=== PATIENT | male | born 1965 | race Caucasian/White ===

== ENCOUNTER 2017-09-23 01:45 | Observation (INO) | payer MEDICAID, OTHER ==
--- NOTE | 2017-09-23 02:45 | ED PDOC ---
Arrival/HPI - General Chief Complaint: Dizziness/Lightheaded Time Seen by Provider: 09/23/17 02:09 Historian: Patient - History of Present Illness Narrative History of Present Illness (Text): 09/23/17 02:37 Dede Garcia is a 51 year old male, whose past medical history includes hyperlipidemia, hypertension, diabetes, and Hepatitis C, who presents to the Emergency department complaining of chest pain. Patient states he has been experiencing chest/epigastric pain with associated dyspnea on exertion, dizziness, and nausea. Patient also notes he feels "very tired." Patient denies any fever, chills, nausea, vomiting, diarrhea, urinary symptoms, back pain, neck pain, headache, or any other complaints. Symptom Onset: Gradual Symptom Course: Unchanged Activities at Onset: Light Context: Home Past Medical History - Provider Review Nursing Documentation Reviewed: Yes - Infectious Disease Hx of Infectious Diseases: None - Psychiatric Hx Depression: No Hx Emotional Abuse: No Hx Physical Abuse: No Hx Substance Use: No - Suicidal Assessment Feels Threatened In Home Enviroment: No Family/Social History - Physician Review Nursing Documentation Reviewed: Yes Family/Social History: Unknown Family HX Hx Alcohol Use: No Hx Substance Use: No Hx Substance Use Treatment: No Allergies/Home Meds Allergies/Adverse Reactions: Allergies No Known Allergies Allergy (Verified 02/23/12 11:20) Home Medications: Home Meds Medication Instructions Recorded Confirmed Alogliptin Benzoate [Alogliptin] 25 mg PO DAILY 09/23/17 09/23/17 Aspirin [Aspirin Chewable] 81 mg PO DAILY 09/23/17 09/23/17 Cetirizine HCl [24Hour Allergy] 10 mg PO DAILY 09/23/17 09/23/17 Ergocalciferol [Drisdol 50,000 1 cap PO DAILY 09/23/17 09/23/17 Intl Units Cap] Fluticasone Nasal [Flonase] 50 mcg NORTH DAILY 09/23/17 09/23/17 Gemfibrozil [Lopid] 600 mg PO DAILY 09/23/17 09/23/17 Niacin [Plain Niacin] 500 mg PO DAILY 09/23/17 09/23/17 Omega3,5,6,7,9 No.1/Aldie Oil 1 cap PO DAILY 09/23/17 09/23/17 [Complete [place] Softgel] PrednisoLONE 1% [Pred Forte 1% 1 drop BOTHEYES DAILY 09/23/17 09/23/17 Opht Susp] metFORMIN [glucOPHAGE] 750 mg PO DAILY 09/23/17 09/23/17 Review of Systems - Physician Review All systems were reviewed & negative as marked: Yes - Review of Systems Constitutional: absent: Fevers Eyes: Normal ENT: Normal Respiratory: Normal. absent: SOB Cardiovascular: Chest Pain, JENKINS Gastrointestinal: Nausea Genitourinary Male: Normal. absent: Dysuria, Frequency, Hematuria, Urinary Output Changes Musculoskeletal: Normal. absent: Back Pain, Neck Pain Skin: Normal. absent: Rash Neurological: Dizziness. absent: Headache Endocrine: Normal Hemo/Lymphatic: Normal Psychiatric: Normal Physical Exam Vital Signs Reviewed: Yes Vital Signs Temp Pulse Resp BP Pulse Ox 09/23/17 01:56 97.6 F 68 15 134/86 97 Temperature: Afebrile Blood Pressure: Normal Pulse: Regular Respiratory Rate: Normal Appearance: Positive for: Well-Appearing, Non-Toxic, Comfortable Pain Distress: None Mental Status: Positive for: Alert and Oriented X 3 - Systems Exam Head: Present: Atraumatic, Normocephalic Pupils: Present: PERRL Extroacular Muscles: Present: EOMI Conjunctiva: Present: Normal Mouth: Present: Moist Mucous Membranes Neck: Present: Normal Range of Motion Respiratory/Chest: Present: Clear to Auscultation, Good Air Exchange. No: Respiratory Distress, Accessory Muscle Use Cardiovascular: Present: Regular Rate and Rhythm, Normal S1, S2. No: Murmurs Abdomen: No: Tenderness, Distention, Peritoneal Signs Back: Present: Normal Inspection Upper Extremity: Present: Normal Inspection. No: Cyanosis, Edema Lower Extremity: Present: Normal Inspection. No: Edema Neurological: Present: GCS=15, CN II-XII Intact, Speech Normal Skin: Present: Warm, Dry, Normal Color. No: Rashes Psychiatric: Present: Alert, Oriented x 3, Normal Insight, Normal Concentration Medical Decision Making ED Course and Treatment: 09/23/17 02:37 Impression: 51 year old male complaining of chest/epigastric pain, dyspnea on exertion, dizziness, and nausea. Plan: -- CT Head w/o contrast -- EKG -- Chest X-ray -- Labs, BNP, cardiac enzymes -- Reassess and disposition Progress Notes: Reviewed EKG, NSR at [address]-segment elevations or depressions, no T-wave inversions, normal intervals. 09/23/17 03:35 Chest X-ray reviewed, shows no acute processes. 09/23/17 04:26 CT Head shows: Ventricles: Unremarkable. No ventriculomegaly. Bones/joints: Unremarkable. No acute fracture. Soft tissues: Unremarkable. Sinuses: Mild inferior frontal, ethmoid and sphenoid sinus mucosal thickening. Mastoid air cells: Unremarkable as visualized. No mastoid effusion. IMPRESSION: 1. Mild inferior frontal, ethmoid and sphenoid sinus disease. 2. Otherwise negative noncontrast head CT. 09/23/17 04:38 Case discussed with medical collections dental front office assistant, who is aware and agrees with plan. Case discussed with Dr. Duong, who is aware and agrees with plan. Accepts pt in to hospitalist service. Pt will go to Telemetry observation for chest pain. - Lab Interpretations Lab Results: 09/23/17 02:40 09/23/17 02:40 Lab Results 09/23/17 02:40: WBC 3.9 L, RBC 4.93, Hgb 13.7 L, Hct 39.6 L, MCV 80.3, MCH 27.8 , MCHC 34.6, RDW 13.6, Plt Count 229, MPV 9.8 09/23/17 02:40: Sodium 140, Potassium 3.9, Chloride 102, Carbon Dioxide 24, Anion Gap 19, BUN 20, Creatinine 0.6 L, Est GFR ( Amer) > 60, Est GFR ( Non-Af Amer) > 60, Random Glucose 127 H, Calcium 10.0, Total Bilirubin 0.7, AST 39, ALT 43, Alkaline Phosphatase 41, Lactate Dehydrogenase 341, Total Creatine Kinase 82, Troponin I < 0.01, NT-Pro-B Natriuret Pep < 11.1, Total Protein 8.2, Albumin 4.9 H, Globulin 3.3, Albumin/Globulin Ratio 1.5 09/23/17 02:40: PT 12.4, INR 1.09 H, APTT 30.2 I have reviewed the lab results: Yes - RAD Interpretation Radiology Orders: 09/23/17 02:38 CHEST PORTABLE [RAD] Stat 09/23/17 02:40 HEAD W/O CONTRAST [CT] Stat Mangle Operator Garments: ED Physician - EKG Interpretation Interpreted by ED Physician: Yes Type: 12 lead EKG - Medication Orders Current Medication Orders: Aspirin (Aspirin Chewable) 81 mg PO DAILY ANGELICA Enoxaparin Sodium (Lovenox) 40 mg SC DAILY ANGELICA PRN Reason: Protocol Ergocalciferol (Drisdol 50,000 Intl Units Cap) 1 cap PO DAILY ANGELICA Fluticasone Propionate (Flonase) actuation NORTH DAILY ANGELICA Gemfibrozil (Lopid) 600 mg PO DAILY ANGELICA Loratadine (Claritin) 10 mg PO DAILY ANGELICA Niacin (Niacin) 500 mg PO DAILY ANGELICA Omega3,5,6,7,9 No.1/Aldie Oil [Complete [place] Softgel] ( Home Med) 1 cap PO DAILY ANGELICA Pantoprazole Sodium (Protonix Ec Tab) 40 mg PO 0600 ANGELICA Prednisolone Acetate (Pred Forte 1% Opht Susp) ml OU DAILY ANGELICA Discontinued Medications Aspirin (Aspirin) 325 mg PO ONCE STA Stop: 09/23/17 04:42 Last Admin: 09/23/17 05:15 Dose: 325 mg - Scribe Statement The provider has reviewed the documentation as recorded by the Melisa Romero Provider Scribe Attestation: All medical record entries made by the Melisa were at my direction and personally dictated by me. I have reviewed the chart and agree that the record accurately reflects my personal performance of the history, physical exam, medical decision making, and the department course for this patient. I have also personally directed, reviewed, and agree with the discharge instructions and disposition. Disposition/Present on Arrival - Present on Arrival Any Indicators Present on Arrival: No History of DVT/PE: No History of Uncontrolled Diabetes: No Urinary Catheter: No History of Decub. Ulcer: No History Surgical Site Infection Following: None - Disposition Have Diagnosis and Disposition been Completed?: Yes Diagnosis: Chest pain Disposition: HOSPITALIZED Disposition Time: 04:41 Patient Problems: Current Active Problems Problem Status Onset Chest pain Acute Condition: STABLE
[2017-09-23 03:06] LABS: HEMOGLOBIN 13.7 g/dL (14.0-18.0); MEAN CELL VOLUME 80.3 fl (80.0-105.0); MEAN CORPUSCULAR HEMOGLOBIN 27.8 pg (25.0-35.0); MEAN CORPUSCULAR HGB CONC 34.6 g/dl (31.0-37.0); MEAN PLATELET VOLUME 9.8 fl (7.0-11.0); RBC 4.93 10^6/uL (3.5-6.1); RED CELL DISTRIBUTION WIDTH 13.6 % (11.5-14.5); WHITE BLOOD COUNT 3.9 10^3/ul (4.5-11.0)
[2017-09-23 03:11] LABS: ALB/GLOB RATIO 1.5 (1.1-1.8); ALBUMIN 4.9 g/dL (3.0-4.8); ALT/SGPT 43 U/L (7-56); AST/SGOT 39 U/L (17-59); BLOOD UREA NITROGEN 20 mg/dL (7-21); GFR AFRICAN-AMERICAN > 60; GFR NON-AFRICAN AMERICAN > 60
[2017-09-23 03:14] LABS: INR 1.09 (0.93-1.08); PARTIAL THROMBOPLASTIN TIME 30.2 Seconds (25.1-36.5); PROTHROMBIN TIME 12.4 SECONDS (9.4-12.5)
[2017-09-23 03:23] LABS: TROPONIN I < 0.01 ng/mL
[2017-09-23 03:24] LABS: B-TYPE NATRIURETIC PEPTIDE < 11.1 pg/mL (0-450)
--- NOTE | 2017-09-23 04:51 | CP.PCM.HP ---
<Nikolas Soto - Last Filed: 09/23/17 05:17> History of Present Illness - History of Present Illness History of Present Illness: Medicine H&P: Dr. Duong Chief Complaint: Dizziness and Chest Pain HPI: 51 year old male with past medical history significant for hyperlipidemia, hypertension, diabetes, and Hepatitis C (known, treated) who presents with dizziness and chest pain for the past 5 hours. Patient states that he has been home from work for the past few days now and he was sitting at home at rest when he had 5/10, substernal, non-radiating, left sided chest pain with associated symptoms of dizziness and general fatigue. Patient denies palliative or provocating symptoms. Patient states that his PMD has prescribed allergy medications for him but he has not been taking them. He denies fevers and chills at home and denies any sick contacts. Patient has never had an ECHO, a cath, and does not follow with a digital production operator outpatient. He had a stress test at [facility] which he conveyed and was found per chart review to be a normal test. Patient has no history of AMI Review of Systems: 12 point ROS obtained and negative except as per HPI Surgical History: Patient denies Medical History: Hyperlipidemia, hypertension, diabetes, and Hepatitis C ( known, treated) Allergies: NKDA Social History: Denies alcohol, tobacco, illicits (Hep C was contracted by dirty needles [place] country) Home Meds: Reviewed, as per MAR Family History: Hypertension PMD: Dr. Johnson Present on Admission - Present on Admission Any Indicators Present on Admission: No Past Patient History - Infectious Disease Hx of Infectious Diseases: None - Past Social History Smoking Status: Never Smoked - CARDIAC Hx Hypertension: Yes - HEMATOLOGICAL/ONCOLOGICAL Hx Hepatitis C: Yes - PSYCHIATRIC Hx Depression: No Hx Emotional Abuse: No Hx Physical Abuse: No Hx Substance Use: No - SURGICAL HISTORY Hx Cholecystectomy: Yes - ANESTHESIA Hx Anesthesia: No Hx Anesthesia Reactions: No Hx Malignant Hyperthermia: No Meds Allergies/Adverse Reactions: Allergies Allergy/AdvReac Type Severity Reaction Status Date / Time No Known Allergies Allergy Verified 02/23/12 11:20 Physical Exam - Constitutional Appears: Well - Head Exam Head Exam: ATRAUMATIC, NORMAL INSPECTION, NORMOCEPHALIC - Eye Exam Eye Exam: EOMI, Normal appearance, PERRL Pupil Exam: NORMAL ACCOMODATION, PERRL - ENT Exam ENT Exam: Mucous Membranes Moist, Normal Exam Additional comments: No sinus tenderness; nares are clear and without congestion - Neck Exam Neck exam: Positive for: Normal Inspection - Respiratory Exam Respiratory Exam: Clear to Auscultation Bilateral, NORMAL BREATHING PATTERN - Cardiovascular Exam Cardiovascular Exam: REGULAR RHYTHM - GI/Abdominal Exam GI & Abdominal Exam: Normal Bowel Sounds, Soft, Tenderness (Mild epigastric tenderness to palpation) - Extremities Exam Extremities exam: Positive for: normal inspection - Back Exam Back exam: NORMAL INSPECTION - Neurological Exam Neurological exam: Alert, CN II-XII Intact, Normal Gait, Oriented x3, Reflexes Normal - Psychiatric Exam Psychiatric exam: Normal Affect, Normal Mood - Skin Skin Exam: Dry, Intact, Normal Color, Warm Results - Vital Signs Recent Vital Signs: Last Vital Signs Temp 97.6 F 09/23/17 01:56 Pulse 68 09/23/17 01:56 Resp 15 09/23/17 01:56 BP 134/86 09/23/17 01:56 Pulse Ox 97 09/23/17 01:56 - Labs Result Diagrams: 09/23/17 02:40 09/23/17 02:40 Labs: Laboratory Results - last 24 hr 09/23/17 09/23/17 09/23/17 02:40 02:40 02:40 WBC 3.9 L RBC 4.93 Hgb 13.7 L Hct 39.6 L MCV 80.3 MCH 27.8 MCHC 34.6 RDW 13.6 Plt Count 229 MPV 9.8 PT 12.4 INR 1.09 H APTT 30.2 Sodium 140 Potassium 3.9 Chloride 102 Carbon Dioxide 24 Anion Gap 19 BUN 20 Creatinine 0.6 L Est GFR ( Amer) > 60 Est GFR (Non-Af Amer) > 60 Random Glucose 127 H Calcium 10.0 Total Bilirubin 0.7 AST 39 ALT 43 Alkaline Phosphatase 41 Lactate Dehydrogenase 341 Total Creatine Kinase 82 Troponin I < 0.01 NT-Pro-B Natriuret Pep < 11.1 Total Protein 8.2 Albumin 4.9 H Globulin 3.3 Albumin/Globulin Ratio 1.5 Assessment & Plan - Assessment and Plan (Free Text) Assessment: 51 year old male with pertinent medical history of hyperlipidemia, hypertension , and diabetes presents with 5 hour duration of chest pain. Patient's initial trope/EKG were negative for STEMI/NSTEMI/ACS. Patient has several risk factors , but ASCVD cannot be calculated without up to date lipid profile - likely high given risk factors. Patient also complains of dizziness but states that he has been drinking plenty of water and head CT negative in the ED for any acute process besides sinus disease. BUN does not indicate dehydration, H/H stable, blood glucose is stable and no electrolyte abnormalities. Patient is afebrile and is satting well on room air. Patient has a history of hepatitis but LFT's and Liver enzymes are wnl. Patient has history of hypertension but is not on home medications and is normotensive here. Plan: Dizziness - Rapid flu - ECHO - Day team can consider Neurology consult, unnecessary for now Chest pain rule out ACS - Admit to telemetry - EKG and Tropes series, Lipid panel, A1C, TSH - ECHO - Cardiology Consult: Dr. Cruz Hx of Hyperlipidemia - Lipid panel - Continue ASA, Gemfibrozil, Niacin, [place] fatty acids Hx of Hypertension - No home medications, monitor for now Hx of Diabetes - Hold home oral medications - A1C - RISS Medium Hx Hepatitis C (known, treated) - Monitor LFT's GI/DVT Prophylaxis - Protonix/Lovenox <Lashonda Duong - Last Filed: 09/23/17 07:50> Results - Vital Signs Recent Vital Signs: Last Vital Signs Temp 97.8 F 09/23/17 07:00 Pulse 71 09/23/17 07:00 Resp 18 09/23/17 07:00 BP 116/84 09/23/17 07:00 Pulse Ox 98 09/23/17 07:00 - Labs Result Diagrams: 09/23/17 07:20 09/23/17 07:20 Labs: Laboratory Results - last 24 hr 09/23/17 09/23/17 09/23/17 07:13 07:20 07:20 WBC 4.2 L RBC 5.08 Hgb 13.9 L Hct 40.7 L MCV 80.1 MCH 27.4 MCHC 34.2 RDW 13.6 Plt Count 241 MPV 9.4 Gran % 44.7 L Lymph % (Auto) 44.5 H [place] % (Auto) 6.7 H Eos % (Auto) 3.4 Baso % (Auto) 0.7 Gran # 1.86 Lymph # (Auto) 1.9 [place] # (Auto) 0.3 Eos # (Auto) 0.1 Baso # (Auto) 0.03 Sodium 141 Potassium 4.3 Chloride 103 Carbon Dioxide 22 Anion Gap 20 BUN 15 Creatinine 0.6 L Est GFR ( Amer) > 60 Est GFR (Non-Af Amer) > 60 POC Glucose (mg/dL) 97 Random Glucose 119 H Calcium 10.2 Phosphorus 3.7 Magnesium 2.2 Total Bilirubin 0.8 AST 33 ALT 47 Alkaline Phosphatase 44 Lactate Dehydrogenase 307 L Total Creatine Kinase 79 Total Protein 8.4 H Albumin 5.1 H Globulin 3.3 Albumin/Globulin Ratio 1.5 Triglycerides 224 H Cholesterol 204 H HDL Cholesterol 34 Attending/Attestation - Attestation I have personally seen and examined this patient.: Yes I have fully participated in the care of the patient.: Yes I have reviewed all pertinent clinical information: Yes Notes (Text): 09/23/17 07:50 Agree with documentation and orders placed.
[2017-09-23] MEDS: Pantoprazole 40 mg EC Tab PO SCH (07:12)
[2017-09-23 07:33] LABS: BASO # 0.03 K/mm3 (0.0-2.0); BASO % 0.7 % (0.0-3.0); EOS # 0.1 (0.0-0.7); EOS % 3.4 % (1.5-5.0); GRAN # 1.86 (1.4-6.5); GRAN % 44.7 % (50.0-68.0); HEMOGLOBIN 13.9 g/dL (14.0-18.0); LYMPH # 1.9 (1.2-3.4); LYMPH % 44.5 % (22.0-35.0); MEAN CELL VOLUME 80.1 fl (80.0-105.0); MEAN CORPUSCULAR HEMOGLOBIN 27.4 pg (25.0-35.0); MEAN CORPUSCULAR HGB CONC 34.2 g/dl (31.0-37.0); MEAN PLATELET VOLUME 9.4 fl (7.0-11.0); MONO # 0.3 (0.1-0.6); MONO % 6.7 % (1.0-6.0); RBC 5.08 10^6/uL (3.5-6.1); RED CELL DISTRIBUTION WIDTH 13.6 % (11.5-14.5); WHITE BLOOD COUNT 4.2 10^3/ul (4.5-11.0)
[2017-09-23 07:49] LABS: ALB/GLOB RATIO 1.5 (1.1-1.8); ALBUMIN 5.1 g/dL (3.0-4.8); ALT/SGPT 47 U/L (7-56); AST/SGOT 33 U/L (17-59); BLOOD UREA NITROGEN 15 mg/dL (7-21); CALCIUM 10.2 mg/dL (8.4-10.5); GFR AFRICAN-AMERICAN > 60; GFR NON-AFRICAN AMERICAN > 60; HDL CHOLESTEROL 34 mg/dL (29-60)
[2017-09-23 07:53] LABS: TROPONIN I < 0.01 ng/mL
[2017-09-23 07:56] LABS: LDL CHOLESTEROL 132 mg/dL (0-129)
--- NOTE | 2017-09-23 08:20 | CT ---
PROCEDURE: CT HEAD WITHOUT CONTRAST. HISTORY: Dizziness, shortness of breath. COMPARISON: None available. TECHNIQUE: Axial computed tomography images were obtained through the head/brain without intravenous contrast. Radiation dose: Total exam DLP = 828.50 mGy-cm. This CT exam was performed using one or more of the following dose reduction techniques: Automated exposure control, adjustment of the mA and/or kV according to patient size, and/or use of iterative reconstruction technique. FINDINGS: HEMORRHAGE: No intracranial hemorrhage. BRAIN: No mass effect or edema. No atrophy or chronic microvascular ischemic changes. VENTRICLES: Unremarkable. No hydrocephalus. CALVARIUM: Unremarkable. PARANASAL SINUSES: Chronic ethmoid air cell disease MASTOID AIR CELLS: Unremarkable as visualized. No inflammatory changes. OTHER FINDINGS: None. IMPRESSION: No acute intracranial abnormalities. No significant findings to account for the clinical presentation. Concordant results (preliminary interpretation) provided by [facility]. Procedure Completed: 03:00 Preliminary (vRad) Report: Dictated and Authenticated: 03:48 Final Interpretation: 08:15 September 23, 2017.
[2017-09-23] MEDS: Insulin Reg-MEDIUM-Coverage SC SCH ×4 (08:28→21:34)
--- NOTE | 2017-09-23 09:18 | RAD ---
HISTORY: chest pain COMPARISON: 02/23/2012. FINDINGS: LUNGS: No active pulmonary disease. PLEURA: No significant pleural effusion identified, no pneumothorax apparent. CARDIOVASCULAR: No radiographic findings to suggest acute or significant cardiovascular disease. OSSEOUS STRUCTURES: No significant abnormalities. VISUALIZED UPPER ABDOMEN: Normal. OTHER FINDINGS: None. IMPRESSION: No active disease. No significant interval change compared to the prior examination(s).
[2017-09-23] MEDS: PrednisoLONE 1% Opht Susp(5 ml) OU SCH (10:09)
[2017-09-23] MEDS: Ergocalciferol 50,000 Intl Units Cap PO SCH (10:12)
[2017-09-23] MEDS: Enoxaparin 40 mg Syringe SC SCH (10:12)
[2017-09-23] MEDS: [UNRECOGNIZED DRUG - REMARK] PO SCH (10:12)
[2017-09-23] MEDS: Fluticasone Nasal 50 mcg/Spray NAS SCH (10:13)
[2017-09-23] MEDS: Sodium Chloride 0.9% 1,000 ML IV SCH ×2 (14:02→23:16)
--- NOTE | 2017-09-23 14:42 | CP.PCM.CON ---
History of Present Illness - History of Present Illness History of Present Illness: is a 51 year old male, pmh of hyperlipidemia, HTN, DM, HepC, who presents with dizziness and chest pain for 5 hours before admission. He had been home from work for a month and was at rest when he developed chest pain, and then had profound dizziness. He denies fevers and chills at home and denies any sick contacts. He got up and then became quite dizzy with diapohoresis and then came to the hospital. In house, he has had a CT head which was normal, and is now getting carotid. He has never had an ECHO, cath, with stress test at [facility]. Surgical History: Patient denies Medical History: Hyperlipidemia, hypertension, diabetes, and Hepatitis C ( known, treated) Allergies: NKDA Social History: Denies alcohol, tobacco, illicits (Hep C was contracted by dirty needles [place] his [place]) Home Meds: Reviewed, as per [facility] Family History: Hypertension On exam: AAOX3. Pupils 3mm-2mm with light. EOMI. No ptosis. Motor: tone normal, sensory: intact ft, pin pos sense. Cerebellar: f/n no dysmetria, +rhombergs to the right. +2 dtr ul and ll bl. Toes downgoing, no clonus. gait normal. Past Patient History - Infectious Disease Hx of Infectious Diseases: None - Past Social History Smoking Status: Never Smoked - CARDIAC Hx Hypercholesterolemia: Yes Hx Hypertension: Yes - HEMATOLOGICAL/ONCOLOGICAL Hx Hepatitis C: Yes - MUSCULOSKELETAL/RHEUMATOLOGICAL Hx Falls: No - PSYCHIATRIC Hx Depression: No Hx Emotional Abuse: No Hx Physical Abuse: No Hx Substance Use: No - SURGICAL HISTORY Hx Cholecystectomy: Yes - ANESTHESIA Hx Anesthesia: No Hx Anesthesia Reactions: No Hx Malignant Hyperthermia: No Meds Allergies/Adverse Reactions: Allergies Allergy/AdvReac Type Severity Reaction Status Date / Time No Known Allergies Allergy Verified 02/23/12 11:20 - Medications Medications: Current Medications Aspirin (Aspirin Chewable) 81 mg PO DAILY [facility] Last Admin: 09/23/17 10:12 Dose: 81 mg Enoxaparin Sodium (Lovenox) 40 mg SC DAILY ANGELICA PRN Reason: Protocol Last Admin: 09/23/17 10:12 Dose: 40 mg Ergocalciferol (Drisdol 50,000 Intl Units Cap) 1 cap PO DAILY [facility] Last Admin: 09/23/17 10:12 Dose: 1 cap Fluticasone Propionate (Flonase) 2 actuation NORTH DAILY [facility] Last Admin: 09/23/17 10:13 Dose: Not Given Gemfibrozil (Lopid) 600 mg PO DAILY [facility] Last Admin: 09/23/17 10:12 Dose: 600 mg Sodium Chloride (Sodium Chloride 0.9%) 1,000 mls @ 100 mls/hr IV .Q10H [facility] Last Admin: 09/23/17 14:02 Dose: 100 mls/hr Ibuprofen (Motrin Tab) 400 mg PO Q6H PRN PRN Reason: Headache Last Admin: 09/23/17 14:01 Dose: 400 mg Insulin Human Regular (Humulin R Med) 0 units SC ACHS [facility] PRN Reason: Protocol Last Admin: 09/23/17 12:52 Dose: Not Given Loratadine (Claritin) 10 mg PO DAILY [facility] Last Admin: 09/23/17 10:12 Dose: 10 mg Meclizine HCl (Antivert) 12.5 mg PO BID [facility] Niacin (Niacin) 500 mg PO DAILY [facility] Last Admin: 09/23/17 10:12 Dose: 500 mg Omega3,5,6,7,9 No.1/[place] Oil [Complete [place] Softgel] ( Home Med) 1 cap PO DAILY [facility] Last Admin: 09/23/17 10:12 Dose: Not Given Pantoprazole Sodium (Protonix Ec Tab) 40 mg PO 0600 [facility] Last Admin: 09/23/17 07:12 Dose: 40 mg Prednisolone Acetate (Pred Forte 1% Opht Susp) 0 ml OU DAILY [facility] Last Admin: 09/23/17 10:09 Dose: 1 drop Results - Vital Signs Recent Vital Signs: Last Vital Signs Temp 98.6 F 09/23/17 11:57 Pulse 74 09/23/17 11:57 Resp 16 09/23/17 11:57 BP 108/67 09/23/17 11:57 Pulse Ox 98 09/23/17 07:00 - Labs Result Diagrams: 09/23/17 07:20 09/23/17 07:20 Labs: Laboratory Results - last 24 hr 09/23/17 09/23/17 09/23/17 07:13 07:20 07:20 WBC 4.2 L RBC 5.08 Hgb 13.9 L Hct 40.7 L MCV 80.1 MCH 27.4 MCHC 34.2 RDW 13.6 Plt Count 241 MPV 9.4 Gran % 44.7 L Lymph % (Auto) 44.5 H [place] % (Auto) 6.7 H Eos % (Auto) 3.4 Baso % (Auto) 0.7 Gran # 1.86 Lymph # (Auto) 1.9 [place] # (Auto) 0.3 Eos # (Auto) 0.1 Baso # (Auto) 0.03 Sodium 141 Potassium 4.3 Chloride 103 Carbon Dioxide 22 Anion Gap 20 BUN 15 Creatinine 0.6 L Est GFR ( Amer) > 60 Est GFR (Non-Af Amer) > 60 POC Glucose (mg/dL) 97 Random Glucose 119 H Hemoglobin A1c Calcium 10.2 Phosphorus 3.7 Magnesium 2.2 Total Bilirubin 0.8 AST 33 ALT 47 Alkaline Phosphatase 44 Lactate Dehydrogenase 307 L Total Creatine Kinase 79 Troponin I < 0.01 Total Protein 8.4 H Albumin 5.1 H Globulin 3.3 Albumin/Globulin Ratio 1.5 Triglycerides 224 H Cholesterol 204 H LDL Cholesterol Direct 132 H HDL Cholesterol 34 TSH 3rd Generation 09/23/17 09/23/17 09/23/17 07:20 07:20 11:38 WBC RBC Hgb Hct MCV MCH MCHC RDW Plt Count MPV Gran % Lymph % (Auto) [place] % (Auto) Eos % (Auto) Baso % (Auto) Gran # Lymph # (Auto) [place] # (Auto) Eos # (Auto) Baso # (Auto) Sodium Potassium Chloride Carbon Dioxide Anion Gap BUN Creatinine Est GFR ( Amer) Est GFR (Non-Af Amer) POC Glucose (mg/dL) 77 Random Glucose Hemoglobin A1c 6.1 Calcium Phosphorus Magnesium Total Bilirubin AST ALT Alkaline Phosphatase Lactate Dehydrogenase Total Creatine Kinase Troponin I Total Protein Albumin Globulin Albumin/Globulin Ratio Triglycerides Cholesterol LDL Cholesterol Direct HDL Cholesterol TSH 3rd Generation 0.59 - Imaging and Cardiology CT scan - head Status: Image reviewed by me, Report reviewed by me (Normal ct head ) Assessment & Plan - Assessment and Plan (Free Text) Assessment: 51 yr old male who has some soft cerebellar signs and 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 We will order CTA Brain and look for posterior circulation atherosclerosis, and MRI Brain without contrast. PLan: 1. CTA Brain 2. MRI Brain 3. Cardiology consult. Thank you Dr. Levin
[2017-09-23 14:49] LABS: TROPONIN I < 0.01 ng/mL
--- NOTE | 2017-09-23 16:10 | CT ---
PROCEDURE: CTA of the neck and brain dated 09/23/2017 HISTORY: Rule out occlusion. COMPARISON: Comparison made with concurrent MRI of the brain as well as prior CT scan brain earlier same day. TECHNIQUE: Contiguous helical/transaxial images of the neck were obtained from the level of the skull-base to the superior mediastinum in the arteriographic phase of enhancement. Coronal and sagittal reformats or also generated. IV contrast dose: 150 cc Omnipaque 350 Radiation Dose - DLP: 523.37 mGy-cm This CT exam was performed using one or more of the following dose reduction techniques: Automated exposure control, adjustment of the mA and/or kV according to patient size, and/or use of iterative reconstruction technique. FINDINGS: RIGHT CAROTID ARTERIES: The aortic arch is widely patent without significant atherosclerotic plaque. . Three-vessel arch. Origins of the great vessels are also widely patent without significant atherosclerotic plaque changes. The right and left common carotid arteries including the carotid bifurcations widely patent without evidence of occlusion significant stenosis or dissection. The distal internal carotid arteries including the petrous cavernous and supraclinoid segments also widely patent. Note made of slight asymmetry of the internal carotid arteries most notably affecting the and petrous and cavernous segments felt to represent an anatomic variation. The vertebral arteries are patent throughout left-sided which is slightly larger in caliber/more dominant than the right side. . Minor asymmetry of the A1 segments right-sided which is slightly larger in caliber/more dominant than the left side. . The remaining visualized distal branches of the anterior middle and posterior cerebral arteries are relatively symmetric. No evidence of large aneurysm nor vascular malformation. Note again made of mild mucoperiosteal inflammatory changes within all the paranasal sinuses. No fluid levels seen to suggest acute sinusitis. IMPRESSION: Unremarkable CT Angiography of the neck and brain. . . No evidence of occlusion significant stenosis or dissection. No evidence of large intra cerebral aneurysm nor vascular malformation.
--- NOTE | 2017-09-23 16:19 | MRI ---
PROCEDURE: MRI BRAIN WITHOUT CONTRAST HISTORY: Follow-up COMPARISON: Comparison made with concurrent CT scan and CTA of the neck and brain. TECHNIQUE: Multiplanar, multisequence MR images of the brain were obtained without intravenous contrast enhancement. FINDINGS: HEMORRHAGE: No acute parenchymal, subarachnoid or extra-axial hemorrhage. No evidence of hemosiderin deposition is identified on gradient echo weighted sequence. . DWI: No evidence of an acute or early subacute infarction seen on diffusion imaging. . BRAIN PARENCHYMA: Minimal slightly coalescent prolonged T2 signal changes in the periventricular white matter may represent some combination of minimal chronic sequela of small vessel disease and some FLAIR related CSF interface artifact. There are also a few chronic appearing lacunar type infarcts seen scattered about the deep and subcortical white matter both cerebral hemispheres. None of these changes exhibit restricted diffusion. No obvious parenchymal nor extra-axial mass or collection identified on this noncontrast exam Ventricular and sulcal size are within range of normal for this patient's stated age. . VENTRICLES: No obstructive hydrocephalus. CRANIUM: No acute calvarial abnormalities are identified. ORBITS: Orbits and contents grossly unremarkable. PARANASAL SINUSES/MASTOIDS: There is mild mucoperiosteal inflammatory changes within all the paranasal sinuses. No fluid levels seen to suggest acute sinusitis. VASCULAR SYSTEM: Visualized major vascular flow voids at skull base patent. OTHER FINDINGS: None. IMPRESSION: No evidence of acute intracranial hemorrhage. Minor chronic periventricular white matter ischemic changes
--- NOTE | 2017-09-23 16:27 | US ---
PROCEDURE: Bilateral carotid artery duplex ultrasound HISTORY: Carotid stenosis dizziness PHYSICIAN(S): Ariel Garnett MD. TECHNIQUE: Duplex sonography and color-flow Doppler were used to evaluate the carotid bifurcations and limited segments of the vertebral arteries bilaterally. FINDINGS: There is mild smooth hypoechoic plaque noted at the carotid bifurcations bilaterally. The peak systolic velocity in the proximal right internal carotid artery is 67 cm/sec. This corresponds to a 20 to 39% proximal right ICA stenosis. Normal systolic velocities are noted in the proximal right external carotid artery. There is blunted antegrade flow in the atretic right vertebral artery. The peak systolic velocity in the proximal left internal carotid artery is 71 cm/sec. This corresponds to a 20 to 39% proximal left ICA stenosis. Normal systolic velocities are noted in the proximal left external carotid artery. There is antegrade flow in the dominant left vertebral artery. IMPRESSION: 1. Bilateral 20-39% proximal ICA stenoses. 2. Antegrade flow in both vertebral arteries.
--- NOTE | 2017-09-23 18:27 | CARD ---
APPROVED REPORT EXAM: Two-dimensional and M-mode echocardiogram with Doppler and color Doppler. INDICATION Chest Pain 2D DIMENSIONS Left Atrium (2D)3.3 (1.6-4.0cm)IVSd1.1 (0.7-1.1cm) LVDd4.0 (3.9-5.9cm)PWd1.2 (0.7-1.1cm) LVDs2.6 (2.5-4.0cm)FS (%) 33.2 % LVEF (%)62.3 (>50%) M-Mode DIMENSIONS Aortic Root3.40 (2.2-3.7cm)Aortic Cusp Exc.2.00 (1.5-2.0cm) Aortic Valve AoV Peak Eeyocodv73.6cm/Carolyne Peak GR.3mmHg Mitral Valve MV E Ijuavrai25.1cm/sMV A Qozukakb34.1cm/sE/A ratio0.8 TDI E/Lateral E'0.0E/Medial E'0.0 Tricuspid Valve TR Peak [id number]/sRAP [id number] Peak Gr.18mmHg [id number] LEFT VENTRICLE The left ventricle is normal size. There is normal left ventricular wall thickness. The left ventricular function is normal. The left ventricular ejection fraction is within the normal range. There is normal LV segmental wall motion. Transmitral Doppler flow pattern is Grade I-abnormal relaxation pattern. RIGHT VENTRICLE The right ventricle is normal size. There is normal right ventricular wall thickness. The right ventricular systolic function is normal. ATRIA The left atrium size is normal. The right atrium size is normal. AORTIC VALVE The aortic valve is normal in structure. No aortic regurgitation is present. There is no aortic valvular stenosis. MITRAL VALVE The mitral valve is normal in structure. There is no mitral valve regurgitation noted. There is no mitral valve stenosis. TRICUSPID VALVE The tricuspid valve is normal in structure. There is trace tricuspid regurgitation. PULMONIC VALVE The pulmonary valve is normal in structure. There is trace pulmonic valvular regurgitation. GREAT VESSELS The aortic root is normal in size. The IVC is normal in size and collapses >50% with inspiration. PERICARDIAL EFFUSION There is no pericardial effusion. <Conclusion> The left ventricle is normal size. There is normal left ventricular wall thickness. The left ventricular function is normal. The left ventricular ejection fraction is within the normal range. There is normal LV segmental wall motion. Transmitral Doppler flow pattern is Grade I-abnormal relaxation pattern.
--- NOTE | 2017-09-23 19:21 | CARD ---
APPROVED REPORT EKG Measurement Heart [id number] <Conclusion> Normal sinus rhythm Normal ECG
[2017-09-23 21:10] LABS: TROPONIN I < 0.01 ng/mL
--- NOTE | 2017-09-23 22:36 | CON ---
DATE: 09/23/2017 REQUESTING PHYSICIAN: Ashley Fishman MD. REASON FOR CONSULTATION: Chest pain. HISTORY OF PRESENT ILLNESS: This is a 51-year-old man with a history of diabetes and hyperlipidemia as well as hypertension who was admitted with complaints of chest discomfort. He states that he was sitting at home yesterday when he felt chest tightness. He states that this radiated to his left arm. He also felt somewhat dizzy at that time. He presents to the emergency room. Initial electrocardiogram was unremarkable. He is currently painfree, however, does have mild dizziness, which persists. He denies any prior cardiac history. He apparently had a stress test sometime in the past which was normal. His cardiac risk factors include hypertension, hyperlipidemia, and diabetes. He does not smoke. There is no family history of premature heart disease. PAST MEDICAL HISTORY: Notable for the problems mentioned above. He has undergone a prior cholecystectomy and inguinal herniorrhaphy. He also reportedly has a history of hepatitis C. CURRENT MEDICATIONS: Include aspirin once daily, Flonase, Glucophage 750 mg daily, Lopid 600 mg daily, niacin 500 mg daily, and Alogliptin 25 mg daily. ALLERGIES: NONE. SOCIAL HISTORY: He does not smoke or drink. He lives with his . 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 FAMILY HISTORY: Several family members has a history of hypertension but there is no family history of premature heart disease. REVIEW OF SYSTEMS: A 10-point review of systems is otherwise unremarkable. PHYSICAL EXAMINATION: GENERAL: He is an overweight middle-aged man. VITAL SIGNS: His blood pressure is 116/84 with a pulse of 70, in sinus and respirations are 16. He is afebrile. HEENT: Normocephalic, atraumatic. NECK: Supple. No JVD noted. CHEST: Few scattered rhonchi heard. HEART: PMI in normal position. No pathological murmurs or gallops noted. ABDOMEN: Soft, nontender with normoactive bowel sounds. EXTREMITIES: No clubbing, cyanosis, or edema. SKIN: Warm and dry. PSYCHIATRIC: Normal mood and affect. NEUROLOGIC: No gross motor or sensory deficits appreciable. DIAGNOSTIC DATA: Electrocardiogram reveals sinus rhythm with nonspecific ST-T abnormalities. Chest x-ray revealed normal cardiac silhouette with clear lung melo. CT of the head was reportedly unremarkable. An echocardiogram was performed and results are pending. White count 4.2, hemoglobin and hematocrit 13.9 and 40.7 with a platelet count of 241,000. PT/PTT were normal. Potassium is 4.3, BUN and creatinine 15 and 0.6. Cholesterol 204 with triglycerides 224, LDL 132 with an HDL of 34. Two sets cardiac enzymes are negative. IMPRESSION: 1. Chest pain in the setting of multiple cardiac risk factors including hypertension, hyperlipidemia, and diabetes. No clear evidence of cardiac ischemia at the present time. 2. Dizziness, etiology unclear. Thus far, no significant dysrhythmias have been noted on the monitor. 3. Multiple cardiac risk factors as noted. RECOMMENDATIONS: Follow up third set of enzymes is pending and should be checked. Aggressive risk factor control should continue. A nuclear stress test would be appropriate given his multiple risk factors and recent symptoms. Thank you for this consultation. We will be happy to follow along as needed. Cali Orlando MD
[2017-09-24] MEDS: Sodium Chloride 0.9% 1,000 ML IV SCH ×3 (01:45→19:55)
[2017-09-24] MEDS: Pantoprazole 40 mg EC Tab PO SCH (05:32)
[2017-09-24 06:08] LABS: BASO # 0.04 K/mm3 (0.0-2.0); BASO % 1.1 % (0.0-3.0); EOS # 0.3 (0.0-0.7); GRAN # 1.05 (1.4-6.5); GRAN % 30.2 % (50.0-68.0); LYMPH # 1.9 (1.2-3.4); MEAN CELL VOLUME 81.2 fl (80.0-105.0); MEAN CORPUSCULAR HEMOGLOBIN 27.7 pg (25.0-35.0); MEAN CORPUSCULAR HGB CONC 34.1 g/dl (31.0-37.0); MEAN PLATELET VOLUME 9.7 fl (7.0-11.0); MONO # 0.3 (0.1-0.6); MONO % 7.7 % (1.0-6.0); RBC 4.69 10^6/uL (3.5-6.1); RED CELL DISTRIBUTION WIDTH 13.7 % (11.5-14.5); WHITE BLOOD COUNT 3.5 10^3/ul (4.5-11.0)
[2017-09-24 06:18] LABS: ALB/GLOB RATIO 1.5 (1.1-1.8); ALBUMIN 4.5 g/dL (3.0-4.8); ALT/SGPT 43 U/L (7-56); AST/SGOT 27 U/L (17-59); BLOOD UREA NITROGEN 14 mg/dL (7-21); CALCIUM 9.5 mg/dL (8.4-10.5); GFR AFRICAN-AMERICAN > 60; GFR NON-AFRICAN AMERICAN > 60
--- NOTE | 2017-09-24 07:32 | CP.PCM.PN ---
Subjective - Date & Time of Evaluation Date of Evaluation: 09/24/17 Time of Evaluation: 07:00 - Subjective Subjective: Stable on 2R. No CP or SOB. V/S noted. RSR PE: Lungs: clear Cor.: S1S2 Abd.: soft Ext.: no edema Neuro.: alert Labs noted. EcHo: Nl LV fx. Objective - Vital Signs/Intake and Output Vital Signs (last 24 hours): Temp Pulse Resp BP Pulse Ox 98.1 F 82 20 110/66 99 09/24/17 05:46 09/24/17 05:46 09/24/17 05:46 09/24/17 05:46 09/24/17 05:46 Intake and Output: 09/24/17 09/24/17 06:59 18:59 Intake Total 1400 Balance 1400 - Medications Medications: Current Medications Aspirin (Aspirin Chewable) 81 mg PO DAILY [facility] Last Admin: 09/23/17 10:12 Dose: 81 mg Enoxaparin Sodium (Lovenox) 40 mg SC DAILY [facility] PRN Reason: Protocol Last Admin: 09/23/17 10:12 Dose: 40 mg Ergocalciferol (Drisdol 50,000 Intl Units Cap) 1 cap PO DAILY [facility] Last Admin: 09/23/17 10:12 Dose: 1 cap Fluticasone Propionate (Flonase) 2 actuation NORTH DAILY [facility] Last Admin: 09/23/17 10:13 Dose: Not Given Gemfibrozil (Lopid) 600 mg PO DAILY [facility] Last Admin: 09/23/17 10:12 Dose: 600 mg Sodium Chloride (Sodium Chloride 0.9%) 1,000 mls @ 100 mls/hr IV .Q10H [facility] Last Admin: 09/24/17 01:45 Dose: 100 mls/hr Ibuprofen (Motrin Tab) 400 mg PO Q6H PRN PRN Reason: Headache Last Admin: 09/23/17 14:01 Dose: 400 mg Insulin Human Regular (Humulin R Med) 0 units SC ACHS [facility] PRN Reason: Protocol Last Admin: 09/23/17 21:34 Dose: Not Given Loratadine (Claritin) 10 mg PO DAILY [facility] Last Admin: 09/23/17 10:12 Dose: 10 mg Meclizine HCl (Antivert) 12.5 mg PO BID [facility] Last Admin: 09/23/17 18:16 Dose: 12.5 mg Niacin (Niacin) 500 mg PO DAILY [facility] Last Admin: 09/23/17 10:12 Dose: 500 mg Omega3,5,6,7,9 No.1/[place] Oil [Complete [place] Softgel] ( Home Med) 1 cap PO DAILY [facility] Last Admin: 09/23/17 10:12 Dose: Not Given Pantoprazole Sodium (Protonix Ec Tab) 40 mg PO 0600 [facility] Last Admin: 09/24/17 05:32 Dose: Not Given Prednisolone Acetate (Pred Forte 1% Opht Susp) 0 ml OU DAILY [facility] Last Admin: 09/23/17 10:09 Dose: 1 drop - Labs Labs: 09/24/17 05:55 09/24/17 05:55 PT 12.4 SECONDS (9.4-12.5) 09/23/17 02:40 INR 1.09 (0.93-1.08) H 09/23/17 02:40 APTT 30.2 Seconds (25.1-36.5) 09/23/17 02:40 Assessment and Plan - Assessment and Plan (Free Text) Assessment: Chest Pain Dizziness, resolved Diabetes HBP HLD CVD Hep. C Plan: Nuclear stress test today.
[2017-09-24] MEDS: Insulin Reg-MEDIUM-Coverage SC SCH ×4 (07:52→21:32)
--- NOTE | 2017-09-24 11:02 | CP.PCM.PN ---
Subjective - Date & Time of Evaluation Date of Evaluation: 09/24/17 Time of Evaluation: 10:30 - Subjective Subjective: Neurology Progress Note - Dr. Levin Pt was seen and examined at bedside. Pt tolerated stress test this morning. He is tolerating oral intake. No acute or adverse events overnight as per nursing staff. He states he is feeling much better today and no longer feels dizzy. Pt denied fever, chills, sob, chest pains, abdominal pains, nausea, vomiting, diarrhea, constipation or dysuria. Pt is ambulating with steady gait. Objective - Vital Signs/Intake and Output Vital Signs (last 24 hours): Temp Pulse Resp BP Pulse Ox 98.1 F 82 20 110/66 99 09/24/17 05:46 09/24/17 05:46 09/24/17 05:46 09/24/17 05:46 09/24/17 05:46 Intake and Output: 09/24/17 09/24/17 06:59 18:59 Intake Total 1400 Balance 1400 - Medications Medications: Current Medications Aspirin (Aspirin Chewable) 81 mg PO DAILY [facility] Last Admin: 09/23/17 10:12 Dose: 81 mg Enoxaparin Sodium (Lovenox) 40 mg SC DAILY [facility] PRN Reason: Protocol Last Admin: 09/23/17 10:12 Dose: 40 mg Ergocalciferol (Drisdol 50,000 Intl Units Cap) 1 cap PO DAILY [facility] Last Admin: 09/23/17 10:12 Dose: 1 cap Fluticasone Propionate (Flonase) 2 actuation NORTH DAILY [facility] Last Admin: 09/23/17 10:13 Dose: Not Given Gemfibrozil (Lopid) 600 mg PO DAILY [facility] Last Admin: 09/23/17 10:12 Dose: 600 mg Sodium Chloride (Sodium Chloride 0.9%) 1,000 mls @ 100 mls/hr IV .Q10H [facility] Last Admin: 09/24/17 01:45 Dose: 100 mls/hr Ibuprofen (Motrin Tab) 400 mg PO Q6H PRN PRN Reason: Headache Last Admin: 09/23/17 14:01 Dose: 400 mg Insulin Human Regular (Humulin R Med) 0 units SC ACHS [facility] PRN Reason: Protocol Last Admin: 09/24/17 07:52 Dose: Not Given Loratadine (Claritin) 10 mg PO DAILY [facility] Last Admin: 09/23/17 10:12 Dose: 10 mg Meclizine HCl (Antivert) 12.5 mg PO BID [facility] Last Admin: 09/23/17 18:16 Dose: 12.5 mg Niacin (Niacin) 500 mg PO DAILY [facility] Last Admin: 09/23/17 10:12 Dose: 500 mg Omega3,5,6,7,9 No.1/[place] Oil [Complete [place] Softgel] ( Home Med) 1 cap PO DAILY [facility] Last Admin: 09/23/17 10:12 Dose: Not Given Pantoprazole Sodium (Protonix Ec Tab) 40 mg PO 0600 [facility] Last Admin: 09/24/17 05:32 Dose: Not Given Prednisolone Acetate (Pred Forte 1% Opht Susp) 0 ml OU DAILY [facility] Last Admin: 09/23/17 10:09 Dose: 1 drop - Labs Labs: 09/24/17 05:55 09/24/17 05:55 PT 12.4 SECONDS (9.4-12.5) 09/23/17 02:40 INR 1.09 (0.93-1.08) H 09/23/17 02:40 APTT 30.2 Seconds (25.1-36.5) 09/23/17 02:40 - Constitutional Appears: No Acute Distress - Head Exam Head Exam: ATRAUMATIC, NORMAL INSPECTION, NORMOCEPHALIC - Eye Exam Eye Exam: EOMI, Normal appearance, PERRL Pupil Exam: NORMAL ACCOMODATION, PERRL - ENT Exam ENT Exam: Mucous Membranes Moist, Normal Exam - Respiratory Exam Respiratory Exam: Clear to Ausculation Bilateral, NORMAL BREATHING PATTERN - Cardiovascular Exam Cardiovascular Exam: REGULAR RHYTHM, +S1, +S2. absent: Murmur - GI/Abdominal Exam GI & Abdominal Exam: Soft, Normal Bowel Sounds. 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 CTA Brain did not demonstrate any occlusions, no acute intracranial pathology on MRI brain, and carotid dopplers demonstrated 20- 39% stenosis b/l. Continue asa, statin, anti-htn, and recs as per cardiology. PT /OT gait stability. FU outpt Neuro
[2017-09-24] MEDS: Enoxaparin 40 mg Syringe SC SCH (11:18)
[2017-09-24] MEDS: Ergocalciferol 50,000 Intl Units Cap PO SCH (11:19)
[2017-09-24] MEDS: [UNRECOGNIZED DRUG - REMARK] PO SCH (11:23)
--- NOTE | 2017-09-24 11:57 | CP.PCM.DIS ---
Addendum entered and electronically signed by aRmses Lopez DO 09/25/17 07:24: Patient is officially discharged on 09/25/17. Patient's myocardial stress test showed revealed a normal SPECT myocardial perfusion study with normal gated wall motion of the left ventricle. Original Note: <Ramses Lopez - Last Filed: 09/25/17 07:23> Provider - Provider Date of Admission: 09/23/17 04:39 Attending physician: Ashley Fishman MD Primary care physician: Arleth Johnson MD Time Spent in preparation of Discharge (in minutes): 45 Diagnosis - Discharge Diagnosis (1) Dizziness Status: Resolved (2) History of hyperlipidemia Status: Chronic Priority: Medium (3) History of hypertension Status: Chronic Priority: Medium (4) History of diabetes mellitus, type II Status: Chronic Priority: Medium (5) Hepatitis C Status: Resolved Priority: Medium (6) Chest pain Status: Resolved Priority: Medium Hospital Course - Lab Results Lab Results: Most Recent Lab Values WBC 3.5 10^3/ul (4.5-11.0) L 09/24/17 05:55 RBC 4.69 10^6/uL (3.5-6.1) 09/24/17 05:55 Hgb 13.0 g/dL (14.0-18.0) L 09/24/17 05:55 Hct 38.1 % (42.0-52.0) L 09/24/17 05:55 MCV 81.2 fl (80.0-105.0) 09/24/17 05:55 MCH 27.7 pg (25.0-35.0) 09/24/17 05:55 MCHC 34.1 g/dl (31.0-37.0) 09/24/17 05:55 RDW 13.7 % (11.5-14.5) 09/24/17 05:55 Plt Count 222 10^3/uL (120.0-450.0) 09/24/17 05:55 MPV 9.7 fl (7.0-11.0) 09/24/17 05:55 Gran % 30.2 % (50.0-68.0) L 09/24/17 05:55 Lymph % (Auto) 53.0 % (22.0-35.0) H 09/24/17 05:55 [place] % (Auto) 7.7 % (1.0-6.0) H 09/24/17 05:55 Eos % (Auto) 8.0 % (1.5-5.0) H 09/24/17 05:55 Baso % (Auto) 1.1 % (0.0-3.0) 09/24/17 05:55 Gran # 1.05 (1.4-6.5) L 09/24/17 05:55 Lymph # (Auto) 1.9 (1.2-3.4) 09/24/17 05:55 [place] # (Auto) 0.3 (0.1-0.6) 09/24/17 05:55 Eos # (Auto) 0.3 (0.0-0.7) 09/24/17 05:55 Baso # (Auto) 0.04 K/mm3 (0.0-2.0) 09/24/17 05:55 PT 12.4 SECONDS (9.4-12.5) 09/23/17 02:40 INR 1.09 (0.93-1.08) H 09/23/17 02:40 APTT 30.2 Seconds (25.1-36.5) 09/23/17 02:40 Sodium 143 mmol/L (132-148) 09/24/17 05:55 Potassium 3.9 mmol/L (3.6-5.0) 09/24/17 05:55 Chloride 105 mmol/L (98-107) 09/24/17 05:55 Carbon Dioxide 25 mmol/L (21-33) 09/24/17 05:55 Anion Gap 17 (10-20) 09/24/17 05:55 BUN 14 mg/dL (7-21) 09/24/17 05:55 Creatinine 0.8 mg/dl (0.8-1.5) 09/24/17 05:55 Est GFR ( Amer) > 60 09/24/17 05:55 Est GFR (Non-Af Amer) > 60 09/24/17 05:55 POC Glucose (mg/dL) 184 mg/dL (65-110) H 09/24/17 11:40 Random Glucose 107 mg/dL (70-110) 09/24/17 05:55 Hemoglobin A1c 6.1 % (4.2-6.5) 09/23/17 07:20 Calcium 9.5 mg/dL (8.4-10.5) 09/24/17 05:55 Phosphorus 4.1 mg/dL (2.5-4.5) 09/24/17 05:55 Magnesium 2.1 mg/dL (1.7-2.2) 09/24/17 05:55 Total Bilirubin 0.4 mg/dL (0.2-1.3) 09/24/17 05:55 AST 27 U/L (17-59) 09/24/17 05:55 ALT 43 U/L (7-56) 09/24/17 05:55 Alkaline Phosphatase 38 U/L (38-126) 09/24/17 05:55 Lactate Dehydrogenase 285 U/L (333-699) L 09/23/17 20:40 Total Creatine Kinase 65 U/L (35-230) 09/23/17 20:40 Troponin I < 0.01 ng/mL 09/23/17 20:40 NT-Pro-B Natriuret Pep < 11.1 pg/mL (0-450) 09/23/17 02:40 Total Protein 7.4 g/dL (5.8-8.3) 09/24/17 05:55 Albumin 4.5 g/dL (3.0-4.8) 09/24/17 05:55 Globulin 2.9 gm/dL 09/24/17 05:55 Albumin/Globulin Ratio 1.5 (1.1-1.8) 09/24/17 05:55 Triglycerides 224 mg/dL (35-160) H 09/23/17 07:20 Cholesterol 204 mg/dL (130-200) H 09/23/17 07:20 LDL Cholesterol Direct 132 mg/dL (0-129) H 09/23/17 07:20 HDL Cholesterol 34 mg/dL (29-60) 09/23/17 07:20 TSH 3rd Generation 0.59 mIU/mL (0.46-4.68) 09/23/17 07:20 Influenza Typ A,B (EIA) Negative for flu a/b (NEGATIVE) 09/23/17 21:25 - Hospital Course Hospital Course: Patient is a 51 year old male with past medical history of hyperlipidemia, hypertension, and diabetes who was admitted for evaluation and treatment of chest pain and dizziness. With the use of physical examinations, lab work, and imaging the patient was diagnosed with and treated for dizziness while acute coronary syndrome was ruled out. During their hospital stay the patient was seen by cardiology (Dr. Cruz) and neurology (Dr. Levin) whose recommendations were both appreciated and utilized in the care for this patient. Dr. Cruz recommended continuing cardiac medications and inpatient nuclear stress test. Dr. Levin recommmended CTA of neck and brain and MRI of brain. During their hospital stay the patient underwent a Head/Neck CTA, Brain MRI, Bilateral carotid artery duplex ultrasound which were reviewed, appreciated, and utilized in the management of the patients clinical course. Head/Neck CTA revealed no evidence of occlusion significant stenosis or dissection and no evidence of large intra cerebral aneurysm nor vascular malformation. Brain MRI revealed no evidence of acute intracranial hemorrhage and minor chronic periventricular white matter ischemic change. Bilateral carotid artery duplex ultrasound showed bilateral 20-39% proximal ICA stenoses and antegrade flow in both vertebral arteries. Patient was treated with aspirin, lopid, insulin, antivert, intravenous fluids amongst other empiric/therapeutic medications. At this time the patient is medically stable for discharge. Patient understands and appreciates discharge plan. Patient instructed to follow up with primary care physicians and referrals within three to five days from discharge. Furthermore, the patient is instructed to take medications as prescribed and to return to emergency room for evaluation of intractable headache, fever, chills, dizziness, chest pain, shortness of breath, abdominal pain, nausea, vomiting, diarrhea, constipation, and urinary symptoms. This is a brief summary of the patients hospital course. Please see patient chart for full details. Discharge Plan - Discharge Medications Prescriptions: Meclizine [Antivert] 12.5 mg PO BID PRN #6 tab PRN Reason: Dizziness - Follow Up Plan Condition: STABLE Disposition: HOME/ ROUTINE Instructions: Vertigo (a Type of Dizziness), Preventing Falls in the Older Adult, High Blood Pressure (DC), Chest Pain (DC), Chest Pain (GEN) Additional Instructions: Patient Instructions: Take medications as prescribed. Follow up with PMD and referrals within three to five days from discharge. Return to the emergency room for evaluation of intractable headache, fever, chills, dizziness, chest pain, shortness of breath, abdominal pain, nausea, vomiting, diarrhea, constipation, and urinary symptoms. Referrals: Arleth Johnson MD [Primary Care Provider] - Nilam Levin MD [Staff Provider] - <Radha Riley - Last Filed: 09/25/17 15:52> Provider - Provider Date of Admission: 09/23/17 04:39 Attending physician: Ashley Fishman MD Primary care physician: Arleth Johnson MD Hospital Course - Lab Results Lab Results: Most Recent Lab Values WBC 3.7 10^3/ul (4.5-11.0) L 09/25/17 05:45 RBC 4.71 10^6/uL (3.5-6.1) 09/25/17 05:45 Hgb 12.7 g/dL (14.0-18.0) L 09/25/17 05:45 Hct 38.2 % (42.0-52.0) L 09/25/17 05:45 MCV 81.1 fl (80.0-105.0) 09/25/17 05:45 MCH 27.0 pg (25.0-35.0) 09/25/17 05:45 MCHC 33.2 g/dl (31.0-37.0) 09/25/17 05:45 RDW 13.6 % (11.5-14.5) 09/25/17 05:45 Plt Count 224 10^3/uL (120.0-450.0) 09/25/17 05:45 MPV 9.6 fl (7.0-11.0) 09/25/17 05:45 Gran % 30.3 % (50.0-68.0) L 09/25/17 05:45 Lymph % (Auto) 54.1 % (22.0-35.0) H 09/25/17 05:45 [place] % (Auto) 7.1 % (1.0-6.0) H 09/25/17 05:45 Eos % (Auto) 7.7 % (1.5-5.0) H 09/25/17 05:45 Baso % (Auto) 0.8 % (0.0-3.0) 09/25/17 05:45 Gran # 1.11 (1.4-6.5) L 09/25/17 05:45 Lymph # (Auto) 2.0 (1.2-3.4) 09/25/17 05:45 [place] # (Auto) 0.3 (0.1-0.6) 09/25/17 05:45 Eos # (Auto) 0.3 (0.0-0.7) 09/25/17 05:45 Baso # (Auto) 0.03 K/mm3 (0.0-2.0) 09/25/17 05:45 PT 12.4 SECONDS (9.4-12.5) 09/23/17 02:40 INR 1.09 (0.93-1.08) H 09/23/17 02:40 APTT 30.2 Seconds (25.1-36.5) 09/23/17 02:40 Sodium 142 mmol/L (132-148) 09/25/17 05:45 Potassium 3.7 mmol/L (3.6-5.0) 09/25/17 05:45 Chloride 105 mmol/L (98-107) 09/25/17 05:45 Carbon Dioxide 27 mmol/L (21-33) 09/25/17 05:45 Anion Gap 14 (10-20) 09/25/17 05:45 BUN 12 mg/dL (7-21) 09/25/17 05:45 Creatinine 0.7 mg/dl (0.8-1.5) L 09/25/17 05:45 Est GFR ( Amer) > 60 09/25/17 05:45 Est GFR (Non-Af Amer) > 60 09/25/17 05:45 POC Glucose (mg/dL) 104 mg/dL (65-110) 09/25/17 07:26 Random Glucose 102 mg/dL (70-110) 09/25/17 05:45 Hemoglobin A1c 6.1 % (4.2-6.5) 09/23/17 07:20 Calcium 9.4 mg/dL (8.4-10.5) 09/25/17 05:45 Phosphorus 3.6 mg/dL (2.5-4.5) 09/25/17 05:45 Magnesium 2.0 mg/dL (1.7-2.2) 09/25/17 05:45 Total Bilirubin 0.6 mg/dL (0.2-1.3) 09/25/17 05:45 AST 35 U/L (17-59) 09/25/17 05:45 ALT 40 U/L (7-56) 09/25/17 05:45 Alkaline Phosphatase 36 U/L (38-126) L 09/25/17 05:45 Lactate Dehydrogenase 285 U/L (333-699) L 09/23/17 20:40 Total Creatine Kinase 65 U/L (35-230) 09/23/17 20:40 Troponin I < 0.01 ng/mL 09/23/17 20:40 NT-Pro-B Natriuret Pep < 11.1 pg/mL (0-450) 09/23/17 02:40 Total Protein 6.9 g/dL (5.8-8.3) 09/25/17 05:45 Albumin 4.2 g/dL (3.0-4.8) 09/25/17 05:45 Globulin 2.8 gm/dL 09/25/17 05:45 Albumin/Globulin Ratio 1.5 (1.1-1.8) 09/25/17 05:45 Triglycerides 224 mg/dL (35-160) H 09/23/17 07:20 Cholesterol 204 mg/dL (130-200) H 09/23/17 07:20 LDL Cholesterol Direct 132 mg/dL (0-129) H 09/23/17 07:20 HDL Cholesterol 34 mg/dL (29-60) 09/23/17 07:20 TSH 3rd Generation 0.59 mIU/mL (0.46-4.68) 09/23/17 07:20 Influenza Typ A,B (EIA) Negative for flu a/b (NEGATIVE) 09/23/17 21:25 Attending/Attestation - Attestation I have personally seen and examined this patient.: Yes I have fully participated in the care of the patient.: Yes I have reviewed all pertinent clinical information, including history, physical exam and plan: Yes Notes (Text): 09/25/17 15:50 attending note; patient seen and examined With resident. patient is a 51-year-old male admitted with chest pain. Cardiac enzymes negative. Stress test showed normal stress study. Headache; CT head, CT is negative. MRI is negative. dizziness improved. patient will be discharged home. Follow-up with PMD Dr. johnson in 1 week.
[2017-09-24] MEDS: PrednisoLONE 1% Opht Susp(5 ml) OU SCH (12:20)
[2017-09-24] MEDS: Fluticasone Nasal 50 mcg/Spray NAS SCH (14:49)
[2017-09-24 18:15] VITALS: RESP 20
--- NOTE | 2017-09-24 21:58 | CARD ---
APPROVED REPORT Protocol: FREDY Test Type: Sestamibi Stress Test Attending Physician: Dr. Ralph Cruz Referring Physician: Dr. Ashley Fishman Test Indications: Chest Pain. Height:5 ft 4 in Weight:163lbs Medications: Aspirin, Lovenox, Drisdol, Flonase, Insulin, Claritin, Niacin, Pred Forte, [place] Complete Medical History: 51 y/o diabetic male with chest pain and risk factors. Target HR: 168 bpm Resting ECG: RSR Resting Heart Rate: 88 bpm Resting Blood Pressure: 110/74mmHg Submaximum (85%): 143 bpm POST EXERCISE Reason for Termination: Fatigue Dyspnea Target HR: No Max HR: 144 bpm 88% of Maximum Predicted HR: 168 bpm Exercise duration: 09:34 min:sec, 4 Stage Exercise capacity: 11.0METs Max Blood Pressure: 138/60mmHg Blood Pressure response to exercise: normal resting BP - appropriate response Heart Rate response to exercise: appropriate Chest Pain: No, none Angina index: 0 Arrhythmia: No, none ST Change: No, none Deviation: 0 mm TEST SUMMARY [id number]/.0. [id number]. EXERCISESTAGE 103:[id number]/70.0. EXERCISESTAGE 203:[id number]/70.0. EXERCISESTAGE 303:[id number]/60.0. EXERCISESTAGE 400:[id number]/60.0.09:18 Contrast agent administered [id number]/80.0. INTERPRETATION Stress EKG Conclusion: Symptom limited stress test which was negative for chest pain, ischemia and arrhythmia. Mildly reduced functional capacity. Nuclear scans pending. Signed by Ralph Cruz Electronically Approved: 09/24/2017 13:07:24 EXAM: Myocardial Perfusion REST/STRESS Stress Test Type: Exercise Treadmill Imaging Protocol Rest Spect myocardial perfusion imaging was performed in supine position 45 minutes following the injection of 10.6 mCi of Tc-99 Myoview. At peak stress, the patient was injected intravenously with 30.9mCi of Tc-99 tetrofosmin after an exercise time of 9 minutes and 34 seconds. Gated Stress Spect was performed 65 minutes after intravenous Tc-99 Myoview injection. The images were gated to evaluate regional wall motion and calculate ventricular ejection fraction.Images were reconstructed using backfilter projection method in short horizontal and verticle long axis. Spect slices were generated. LV Perfusion The quality of the study is good. The left ventricle is normal in size. The right ventricle is unremarkable. The lung uptake is within normal limits. The distribution of tracer reveals normal uptake pattern throughout the LV myocardium on the stress study. The rest myocardial perfusion study shows no significant change. Wall Motion Wall motion study shows good contractility of the left ventricle. LVEF = 68%. Conclusion 1. Normal SPECT myocardial perfusion study. 2. Normal gated wall motion of the left ventricle.
[2017-09-25] MEDS: Sodium Chloride 0.9% 1,000 ML IV SCH ×2 (02:30→06:02)
[2017-09-25] MEDS: Pantoprazole 40 mg EC Tab PO SCH (06:01)
[2017-09-25 06:26] VITALS: BP 109/71; PULSE 71; TEMP 97.8; O2SAT 96
[2017-09-25 06:30] LABS: BASO # 0.03 K/mm3 (0.0-2.0); BASO % 0.8 % (0.0-3.0); EOS # 0.3 (0.0-0.7); EOS % 7.7 % (1.5-5.0); GRAN # 1.11 (1.4-6.5); GRAN % 30.3 % (50.0-68.0); HEMOGLOBIN 12.7 g/dL (14.0-18.0); LYMPH % 54.1 % (22.0-35.0); MEAN CELL VOLUME 81.1 fl (80.0-105.0); MEAN CORPUSCULAR HGB CONC 33.2 g/dl (31.0-37.0); MEAN PLATELET VOLUME 9.6 fl (7.0-11.0); MONO # 0.3 (0.1-0.6); MONO % 7.1 % (1.0-6.0); RBC 4.71 10^6/uL (3.5-6.1); RED CELL DISTRIBUTION WIDTH 13.6 % (11.5-14.5); WHITE BLOOD COUNT 3.7 10^3/ul (4.5-11.0)
[2017-09-25 07:38] LABS: ALB/GLOB RATIO 1.5 (1.1-1.8); ALBUMIN 4.2 g/dL (3.0-4.8); ALT/SGPT 40 U/L (7-56); AST/SGOT 35 U/L (17-59); BLOOD UREA NITROGEN 12 mg/dL (7-21); CALCIUM 9.4 mg/dL (8.4-10.5); GFR AFRICAN-AMERICAN > 60; GFR NON-AFRICAN AMERICAN > 60
[2017-09-25] MEDS: Insulin Reg-MEDIUM-Coverage SC SCH (08:00)
== END 2017-09-25 11:16 | disposition home or self-care (01) ==
LOC: ED 01:45 → ERH 04:39 → 2RNO 06:38 → INTOOBSV 14:35 → OBSVTOIN 14:35 → 2RNO 09-24 11:00
PROVIDERS: ADMIT Internal Medicine; ATTEND Internal Medicine
DX: R07.89 Other chest pain (principal); R42 Dizziness and giddiness; I10 Essential (primary) hypertension; E78.5 Hyperlipidemia, unspecified; E11.9 Type 2 diabetes mellitus without complications; R51 Headache; Z86.19 Personal history of other infectious and parasitic diseases; Z79.84 Long term (current) use of oral hypoglycemic drugs
CPT/HCPCS: 36415; 70450; 70496; 70498; 70551; 71045; 78452; 80053; 80061; 82550; 82948; 83036; 83615; 83735; 83880; 84100; 84443; 84484; 85025; 85027; 85610; 85730; 87804; 93005; 93017; 93306; 93880; 96372; 99285; A9502; G0378; J1650; J7040; Q9967